=== PATIENT | male | born 1990 | race Caucasian/White ===

== ENCOUNTER 2023-06-05 08:01 | Emergency (ER) | payer OTHER, SELFPAY ==
--- NOTE | 2023-06-05 08:14 | ED.URI ---
HPI - URI/Sore Throat General Chief Complaint: Upper Respiratory Infection Stated Complaint: sore throat,fever Source: patient and RN notes reviewed History of Present Illness HPI Narrative: 32 yo M presents to urgent care with complaints of a sore throat since Tuesday. Pt states he has some bilateral ear pain as well and a little congestion and runny nose. Denies any fevers, chills, N/V/D, chest pain, or SOB. Pt has been taking Stephanie-seltzer at home. Related Data Home Medications Medication Instructions Recorded Confirmed No Home Medications 06/05/23 06/05/23 Allergies Allergy/AdvReac Type Severity Reaction Status Date / Time No Known Allergies Allergy Mild Verified 06/05/23 08:12 Review of Systems Review of Systems: CONSTITUTIONAL: Denies fever, chills, or sweats. EYES: Denies visual changes, redness, or discharge. ENT: sore throat, ear pain, and some congestion CARDIOVASCULAR: Denies chest pain, palpitations, or edema. RESPIRATORY: Denies cough or dyspnea. GASTROINTESTINAL: Denies abdominal pain, nausea, vomiting, or diarrhea. GENITOURINARY: Denies dysuria or hematuria. SKIN: Denies rash or itching. MUSCULOSKELETAL: Denies back pain, joint pain, or myalgia. NEUROLOGIC: Denies headache, numbness, or weakness. Pertinent positives per HPI. [facility] Family History Family History (Updated 07/04/14 @ 07:13 by DOCTOR UNKNOWN) Other Diabetes mellitus Family history of heart disease in male family member before age 55 Hypertension Social History Social History Smoking status: Never smoker Alcohol intake: current Comments At the time of my signature, I reviewed and agree with the nursing past medical, surgical, social, and family history. There is no relevant family history pertinent to the patient complaint. Exam Narrative: GENERAL: This is a well-nourished, well-developed patient, in no apparent distress. HEAD: normocephalic, atraumatic. EYES: Sclera clear/white. Vision is grossly intact. EARS: External ears normal, auditory canals clear and without drainage, TMs normal without perforation. Hearing grossly intact. NOSE: External nose normal with no obvious nasal discharge, nares without redness, no rhinorrhea. THROAT: Mucous membranes moist, posterior pharynx mildly erythemic. Postnasal drip noted. NECK: Neck supple, non-tender without lymphadenopathy, masses or thyromegaly. CARDIOVASCULAR: Regular rate RESPIRATORY: no respiratory distress SKIN: warm, intact with no suspicious lesions or rash, good texture and turgor. NEURO: awake, alert, and oriented to person, place and time. There were no obvious focal neurologic abnormalities. Course Course Level of Care: Express Care Visit Vital Signs Vital signs: Vital Signs Temperature 97.6 F 06/05/23 08:18 Pulse Rate 84 06/05/23 08:18 Respiratory Rate 16 06/05/23 08:18 Blood Pressure 153/91 H 06/05/23 08:18 Pulse Oximetry 100 06/05/23 08:18 Temperature 97.6 F 06/05/23 08:18 Pulse Rate 84 06/05/23 08:18 Respiratory Rate 16 06/05/23 08:18 Blood Pressure 153/91 H 06/05/23 08:18 Pulse Oximetry 100 06/05/23 08:18 Reviewed MDM - URI/Sore Throat MDM Narrative Medical decision making narrative: Rapid strep is negative in the office; however we will send to the lab for confirmation; there is a small percentage chance that it can come back positive; if it is, we will call you in 2-3days; and your prescription will be call in to your pharmacy. However, there is NO indication for antibiotic at this time. -Increase your fluids and Vitamin C. -Oral rinses such as: Salt water gargles and/or may use topical anesthetic (eg. Chloraseptic spray) or lozenges to relieve dryness or throat pain. -Take tylenol and ibuprofen as needed for pain and fever as directed. -Frequent hand washing or hand head tennis professional is one of the best ways to prevent spread of infection. -Follow up with primary care provider in 2-3 da
[2023-06-05 08:18] VITALS: BP 153/91; PULSE 84; RESP 16; TEMP 36.4; O2SAT 100
== END 2023-06-05 08:55 | disposition home or self-care (01) ==
PROVIDERS: Emergency Provider Nurse Practitioner Family
DX: J02.9 Acute pharyngitis, unspecified (principal); E78.00 Pure hypercholesterolemia, unspecified; I10 Essential (primary) hypertension
CPT/HCPCS: 87081; 87880; 99213; G0463

== ENCOUNTER 2025-04-07 12:19 | Emergency (ER) | payer OTHER, SELFPAY ==
--- NOTE | ~2025-04-07 | CT_ITS ---
EXAMINATION: CT lumbar spine wo con DATE: 04/07/2025 14:46 INDICATION: Low back pain TECHNIQUE: Computed tomography (CT) of the lumbar spine was performed without intravenous contrast. A utomated exposure control and iterative reconstruction technique were employed. The dose-length produ ct was 1023.52 mGy-cm. COMPARISON: None FINDINGS: 8 degrees lumbar levocurvature. Sagittal alignment is normal. Vertebral body heights are normal.. No fracture. Mild disc height loss at L3-L4, L4-L5 and L5-S1. Moderate bilateral sacroiliac osteoarthrit is. Paravertebral soft tissues are unremarkable. The following disc levels are specifically discussed : T12-L1: There is moderate bilateral facet osteoarthritis. There is no neural foraminal stenosis. Ther e is no central canal stenosis. L1-L2: There is moderate bilateral facet joint osteoarthritis. There is no neural foraminal stenosis . There is no central canal stenosis. L2-L3: Disc is mildly bulging. There is mild to moderate bilateral facet joint osteoarthritis. There is mild bilateral neural foraminal stenosis. There is minimal central canal stenosis. L3-L4: Disc is bulging. There is mild bilateral facet joint osteoarthritis. There is moderate right a nd mild to moderate left neural foraminal stenosis. There is mild central canal stenosis. L4-L5: Disc is bulging. There is mild bilateral facet joint osteoarthritis. There is moderate bilater al neural foraminal stenosis. There is mild central canal stenosis. L5-S1: Disc is bulging. There is mild right and mild to moderate left facet joint osteoarthritis. The re is mild right and moderate left neural foraminal stenosis. There is no central canal stenosis. IMPRESSION: 1. Mild lumbar spondylosis. Reviewed, dictated and finalized at location A. IMPRESSION: 1. Mild lumbar spondylosis.
[2025-04-07 12:49] VITALS: BP 148/95; PULSE 64; RESP 16; TEMP 36.3; O2SAT 100
--- NOTE | 2025-04-07 14:34 | ED_ITS ---
HPI - General Adult General Chief complaint: Back Pain/Injury Stated complaint: Back pain since Tuesday-hx scoliosis Time Seen by Provider: 04/07/25 14:19 History of Present Illness HPI narrative: Patient 32-year-old gentleman presents emergency department with chief complaint of back pain. Patient has history of scoliosis and reports that he has intermittent flare ups patient does report that he has had a spine doctor and [facility] but currently is not able to see them due to insurance related issues. The patient reports no bowel or bladder incontinence reports no footdrop denies saddle anesthesia Related Data Allergies Allergy/AdvReac Type Severity Reaction Status Date / Time No Known Allergies Allergy Mild Verified 04/07/25 12:21 Review of Systems Review of Systems: A 10 system review of systems was completed on the patient and is negative except for what is stated in the HPI. Nursing and ancillary documentation was reviewed. PMFSH Past Medical History Medical History Hyperlipidemia Family History Family History Mother Cancer Grandparent Cancer Diabetes mellitus Hypertension Other Family history of heart disease in male family member before age 55 Social History Social History Smoking status: Never smoker Alcohol intake: current Do You Feel Safe in your Home?: Yes Lack of Transportation: No Lack of Food: Never True Current Housing: I Have Housing Living arrangements: with family Gender identity (if verbalized by the patient): Male Sexual Orientation (if Verbalized by the Patient): Straight or Heterosexual Exam Narrative: GENERAL: Well-appearing, well-nourished, and in no acute distress. HEAD: Normocephalic, atraumatic. EYES: PERRLA and EOMI. ENT: Nares clear, no rhinorrhea or epistaxis. Mucous membranes moist. NECK: Supple. CHEST: Clear to auscultation. No respiratory distress. HEART: Regular rate and rhythm. No murmur heard. Normal peripheral pulses. ABDOMEN: Soft, nontender, nondistended, normal active bowel sounds. EXTREMITIES: Normal range of motion. No edema. SKIN: Warm, dry, no rash. NEURO: No focal deficits. Alert and oriented x3. No saddle anesthesia no footdrop able ambulate on tiptoes PSYCH: Normal mood and affect. Course Vital Signs Vital signs: Vital Signs Temperature 36.3 C L 04/07/25 12:49 Pulse Rate 64 04/07/25 12:49 Respiratory Rate 16 04/07/25 12:49 Blood Pressure 148/95 H 04/07/25 12:49 Pulse Oximetry 100 04/07/25 12:49 Oxygen Delivery Room Air 04/07/25 12:49 Temperature 36.3 C L 04/07/25 12:49 Pulse Rate 53 L 04/07/25 15:24 Respiratory Rate 15 04/07/25 15:24 Blood Pressure 131/82 04/07/25 15:24 Pulse Oximetry 99 04/07/25 15:24 Oxygen Delivery Room Air 04/07/25 12:49 Medical Decision Making MDM Narrative Medical decision making narrative: Differential diagnosis includes lumbar radiculopathy, disc herniation, cauda equina, acute nerve compression The patient showed no signs of saddle anesthesia no footdrop was able ambulate on his tiptoes shows no signs of acute cauda equina syndrome. The patient was instructed to follow-up with neurosurgery patient given steroids muscle relaxers Lidoderm. Patient was instructed return precautions 8 degrees lumbar levocurvature. Sagittal alignment is normal. Vertebral body heights are normal.. No fracture. Mild disc height loss at L3-L4, L4-L5 and L5- S1. Moderate bilateral sacroiliac osteoarthritis. Paravertebral soft tissues are unremarkable. The following disc levels are specifically discussed: T12-L1: There is moderate bilateral facet osteoarthritis. There is no neural foraminal stenosis. There is no central canal stenosis. L1-L2: There is moderate bilateral facet joint osteoarthritis. There is no neural foraminal stenosis. There is no central canal stenosis. L2-L3: Disc is mildly bulging. There is mild to moderate bilateral facet joint osteoarthritis. There is mild bilateral neural foraminal stenosis. There is minimal central canal stenosis. L3-L4: Disc is bulging. There is mild bilateral facet joint osteoarthritis. There is moderate right and mild to moderate left neural foraminal stenosis. There is mild central canal stenosis. L4-L5: Disc is bulging. There is mild bilateral facet joint osteoarthritis. There is moderate bilateral neural foraminal stenosis. There is mild central canal stenosis. L5-S1: Disc is bulging. There is mild right and mild to moderate left facet joint osteoarthritis. There is mild right and moderate left neural foraminal stenosis. There is no central canal stenosis. IMPRESSION: 1. Mild lumbar spondylosis. Vital Signs Vital Signs: Vital Signs Temperature 36.3 C L 04/07/25 12:49 Pulse Rate 64 04/07/25 12:49 Respiratory Rate 16 04/07/25 12:49 Blood Pressure 148/95 H 04/07/25 12:49 Pulse Oximetry 100 04/07/25 12:49 Oxygen Delivery Room Air 04/07/25 12:49 Temperature 36.3 C L 04/07/25 12:49 Pulse Rate 53 L 04/07/25 15:24 Respiratory Rate 15 04/07/25 15:24 Blood Pressure 131/82 04/07/25 15:24 Pulse Oximetry 99 04/07/25 15:24 Oxygen Delivery Room Air 04/07/25 12:49 Lab Data Labs: Lab Results 04/07/25 Range/Units 14:55 Urine Color Yellow (Yellow) Urine Appearance Cloudy H (Clear) Urine pH 7.5 (5.0-9.0) Ur Specific [place] 1.025 (1.001-1.035) Urine Protein Trace (Negative) mg/dL Urine Glucose (UA) Negative (Negative) mg/dL Urine Ketones Trace H (Negative) mg/dL Ur Blood (Man) Negative (Negative) Urine Nitrate Negative (Negative) Urine Bilirubin Negative (Negative) Urine Urobilinogen 1.0 (<2.0) mg/dL Leukocyte Esterase Rfl Negative (Negative) JOEY/UL Urine RBC 0-2 (0-2) /hpf Urine WBC 0-5 (0-3) /hpf Ur Squamous Epith Cells None seen (Few) /hpf Urine Bacteria None seen /hpf Urine Casts 0-2 Discharge Plan Discharge Clinical Impression: Lumbar radiculopathy, Low back pain Patient Disposition: Home Condition: Stable Instructions: Antibiotic Form, Acute Low Back Pain (ED), Lumbar Radiculopathy (ED) Patient Language: Haitian Prescriptions: New diclofenac potassium 50 mg tablet 50 mg PO TID PRN (Reason: pain) Qty: 30 0RF orphenadrine citrate 100 mg tablet extended release 100 mg PO Q12H PRN (Reason: muscle pain) Qty: 30 0RF lidocaine [Lidoderm] 5 % adhesive patch,medicated 1 patch topical DAILY Qty: 15 0RF Rx Instructions: leave on most painful area for up to 12 hrs prednisone 20 mg tablet 40 mg PO DAILY 5 Days Qty: 10 0RF No Action atomoxetine 40 mg capsule 40 mg PO QAM Qty: 90 2RF baclofen 10 mg tablet 10 mg PO QHS Qty: 90 0RF Follow-up/Referrals: Joy Lagunas MD [Primary Care Provider] - Wade Smith MD [Physician] - Time of Disposition: 15:48
[2025-04-07] MEDS: LIDOCAINE 5% PATCH 1 PATCH TRANSDERM (14:48)
[2025-04-07] MEDS: HYDROcodone/acetaminophen (*CRX) 5-325 MG TABLET 1 TAB PO (14:49)
[2025-04-07] MEDS: ORPHENADRINE CITRATE 100 MG TABLET.ER PO (14:49)
[2025-04-07] MEDS: KETOROLAC 30 MG/ML VIAL (*BKC) IM (14:51)
[2025-04-07] MEDS: dexAMETHasone SOD PHOS INJ 10 MG/ML 1 ML VIAL IM (14:51)
[2025-04-07 15:11] LABS: Add Urine Microscopic? YES; Appearance Urine Cloudy (Clear); Bacteria Urine None Seen /hpf; Bilirubin Urine Negative (Negative); Blood Urine Negative (Negative); Color Urine Yellow (Yellow); Glucose Urine UA Negative (Negative); Ketones Urine Trace mg/dL (Negative); Leukocyte Esterase Ur Negative LEU/UL (Negative); Nitrate Urine Negative (Negative); Non Pathogenic Casts 0-2; Protein Urine Trace mg/dL (Negative); RBC Urine 0-2 /hpf (0-2); Specific Grav Ur 1.025 (1.001-1.035); Squamous Epithelial Cell Urine None Seen /hpf (Few); WBC Urine 0-5 /hpf (0-3); pH Urine 7.5 (5.0-9.0)
[2025-04-07 15:24] VITALS: BP 131/82; PULSE 53; RESP 15; O2SAT 99
--- OUTSIDE RECORDS SUMMARY | 2025-04-07 18:04 | XMS_ITS | Clinical Summary ---
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 This disclosure is being madepursuant to the Care Everywhere program and may not contain all information available regarding this patient. Last updated 18.[facility] Allergies No known active allergies Immunizations Immunization Administration Dates Next Due TDAP (7yrs+) 12/10/2019 Social History Tobacco Use Types Packs/Day Years Used Date Smoking Tobacco: Never Smokeless Tobacco: Never Alcohol Use Standard Drinks/Week Comments Yes 0 (1 standard drink = 0.6 oz pur e alcohol) occassionally Sex and Gender Information Value Date Recorded Sex Assigned at Not on file Legal Sex Male 5:35 AM [employer] Gender Identity Not on file Sexual Orientation Not on file Last Filed Vital Signs Vital Sign Reading Time Taken Comments Blood Pressure 140/85 12/10/2019 1:40 PM [employer] Pulse 66 12/10/2019 11:58 AM [employer] Temperature 36.6 C (97.8 F) 12/10/2019 11:58 AM [employer] Respiratory Rate 18 12/10/2019 11:58 AM [employer] Oxygen Saturation 99% 12/10/2019 1:39 PM [employer] Inhaled Oxygen Concentration - - Weight 117.9 kg (260 lb) 12/10/2019 11:58 AM [employer] Height 203.2 cm (6' 8) 12/10/2019 11:58 AM [employer] Body Mass Index 28.56 12/10/2019 11:58 AM [employer] Plan of Treatment Health Maintenance Due Date Last Done Comments HIV SCREENING 2007 HEPATITIS C SCREENING 10/06/2010 HEPATITIS B VACCINE (1 of 3 - 19+ 3-dose series) 2011 COVID-19 VACCINE (1 - 2023-2 5 season) 2024 DEPRESSION SCREENING 11/07/2024 INFLUENZA VACCINE (Season Ended) 2025 DTAP/TDAP/TD VACCINES (2 - T d or Tdap) 12/10/2029 12/10/2019 ZOSTER VACCINE (1 of 2) 2042 HIB VACCINE Aged Out No longer eligi ble based on patient's age to complete this topic HPV VACCINE Aged Out No longer eligi ble based on patient's age to complete this topic MENINGOCOCCAL (Group B) VACC INE SHARED DECISION-MAKING Aged Out No longer eligibl e based on patient's age to complete this topic MENINGOCOCCAL GROUPS A/C/Y/W VACCINE Aged Out No longer eligible b ased on patient's age to complete this topic PNEUMOCOCCAL VACCINE Aged Out No long er eligible based on patient's age to complete this topic Insurance HEALTH Care Teams Roller Mill Operator Relationship Specialty Start Date End Date Ubaldo Somers MD [address] [place] [id number] PCP - General 12/28/09
--- OUTSIDE RECORDS SUMMARY | 2025-04-07 18:04 | XMS_ITS | Continuity of Care Document ---
Author Organization [facility] Address [address] [place] [address] Phone Care Team Providers Care Provider Enrollment Specialist Name Role Phone Katrina Osorio Unavailable Unavailabl e Allergies, Adverse Reactions, Alerts Substance Reaction Status Criticality No Known Allergies Active No Inform ation Medications Medication Instructions Dosage Effective Dates (start - stop) Status Comments amoxicillin 875 mg-potassium clavulanate 125 mg tablet take 1 tablet by oral route every 12 hours 1.00 tablet - Active polymyxin B sulfate 10,000 unit-trimethoprim 1 mg/mL eye drops instill 2 drop by ophthalmic route every 6 hours into affected eye(s) 2 drop - Active losartan 25 mg tablet take 1 tablet by oral route every day 25 MG - Active amoxicillin 500 mg tablet take 1 tablet by oral route 3 times every day 500 MG - No Longer Active amoxicillin 875 mg-potassium clavulanate 125 mg tablet take 1 tablet by oral route every 12 hours 1.00 tablet - No Longer Active Procedures Procedure Date Pt inelig neg scrn depres PREVENTATIVE-EST: 18-39 BODY MASS INDEX DOCD SYST BP LT 130 MM HG DIAST BP >= 90 MM HG URINALYSIS, REFLEX (UA) COMPREHEN METABOLIC PANEL CMP LDL-CHOLESTEROL, DIRECT ROUTINE VENIPUNCTURE PREVENTATIVE-EST: 18-39 Mar-09-2022 COMPREHEN METABOLIC PANEL CMP 0 LIPID PANEL URINALYSIS, REFLEX (UA) ROUTINE VENIPUNCTURE PREVENTATIVE-NEW: Advance Directives Directive Yes / No Effective Date File Name No Information Encounters Encounter Description Practice Location Reason(s) For Visit Diagnoses Date Provider Providers Copied on Encounter [facility], [address], [place], [place], [id number] , tel: [phone] [facility] No Information 4 Jeffadelaide Katrina. [address], [id number], . tel: [phone] [facility], [address], [place], [place], [address] , tel: [phone] [facility] No Information 3 Sheila Harding. [address] [address] Reid, [address], [id number], . tel: [phone] [facility], [address], [place], [place], [address] , tel: [phone] [facility] No Information 3 Omero Herndon. [address], [id number], . tel: [phone] [facility], [address], [place], [place], [address] , tel: [phone] [facility] No Information 3 Sheila Bridges [address] Randa Reid, [facility] [address] [place], [id number], . tel: [phone] PREVENTATIVE -EST: [facility], [address], [place], [place], [address] , tel: [phone] [facility] preventive exam (chief complaint) Hyperlipidemia, unspecified hyperlipidemia typeEssential (primary) hypertensionScol iosis of thoracic spine, unspecified scoliosis typeRoutine check-up 3 Sheila Bridges [address], [address], [place], [place], [address], . tel:[phone] Referring Provider: Mehdi Milian, [address], [place], [address]. tel:[phone] PREVENTATIVE -EST: [address] [facility], [address], [place], [place], [address] , tel: [phone] [facility] back pain (chief complaint)p hysical (chief complaint)C hronic Conditions (chief complaint) Essential (primary) hypertensionEnco unter for general adult medical examination without abnormal findingsScoliosi s of thoracic spine, unspecified scoliosis typeLumbar back pain Jan- 2 Omero Herndon. [address] Randa Blackwood, Jassi [address] [place] [address], [id number], . tel:[phone] Referring Provider: Mehdi Milian, [address] [facility], [place], [address]. tel:[phone] [facility], [address], [place], [place], [address] , tel: [phone] [facility] Routine check-upHyperlip idemia, unspecified hyperlipidemia typeHTN (hypertension), benign 0 Sheila Harding. [address], [address], [place], [place], [address], . tel:[phone] Referring Provider: Mehdi Milian, [address], [place], [address]. tel:[phone] PREVENTATIVE -NEW: [address] [facility], [address], [place], [place], [address] , tel: [phone] [facility] patient (chief complaint) Routine check-upHTN (hypertension), benignHyperlipid emia, unspecified hyperlipidemia typeHistory of 2019 novel coronavirus disease (COVID-19)Family history of pancreatic cancer 0 Sheila Harding. [address], [address], [place], [place], [address], . tel:[phone] Referring Provider: Mehdi Milian, [address], [place], [address]. tel:[phone] Family History Family Member Type Diagnosis Age At Onset No Information Immunizations Vaccine Date Status Comments Pfizer (Abelardo-Sucrose) COVID1 9 Vaccine, 0.3mL per dose, 2 doses, administered 21 days apart administered Source: Other Registry Pfizer (Abelardo-Sucrose) COVID1 9 Vaccine, 0.3mL per dose, 2 doses, administered 21 days apart administered Source: Other Registry Payers Payer name Insurance type Covered democrat ID Authoriza tiangelina(s) [facility] [id number] Social History Type Description Quantity Date Captured Comments Alcohol Use Details Unknown Caffeine Use Details Unknown Tobacco Use Status No Information Smoking Status No Information Sex Male Chief Complaint And Reason For Visit No Information Reason For Referral Reason For Referral No Information History Of Present Illness Encounter Date Complaint History Of Prese nt Illness preventive exam physical Patient here for his physical.Diet-balance diet; fruits and vegetablesexercise-has been more sedentary lately because 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 Calvillo previously (orthopedic spine doctor) when he was a childwore a brace for about a yearhas had no real trouble since back pain Chronic Conditions *See Chronic Conditions HPI new patient new patient (comments) new patie nt, insurance changed, was going to come in but tested positive for covid tuesdayhe had covid about 3 weeks ago, had cold sx/fatigue and dec smell, now doing better/back to baselineprior md had done cholesteorl test which was high, told to eat healthy and exercise, but concerned as he was already doing thishas been having high bp readings for some time, has been checking regularlysbp 130-140, dbp high 80s to 90s, she gave me aobut 10 readings with manual cuffhas never been treatedmom pancreatic ca, ? 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 [employer] nonesh: no tob, 2-3 beers 4-5 nights week, , runs a [employer]; mom panc ca in early 50sdad svt, htn, inc lipidsimmun; no flu vaccine, td this year due to injuryrosweihg stableheent negpulm sob with covid, resolvedcv neggi neggu negms back issues chronically wiht scoliosis, would like to f/u with someonecherisein negneuodannie laboywife denies any janay sxmood ok Functional Status Date Functional Assessmen t No Information Instructions Date Instruction Additional Infor dioni currently asymptomatic/monitor R elated to Scoliosis of thoracic spine, unspecified scoliosis type as abovereq for lipi d panel (not fasting today) Related to Hyperlipidemia, unspecified hyperlipidemia type rec. treatment, losa rtan 25 mg a day, to monitor bp and send in readings in1-2 weekslet me know if you feel you are having any adverse effectsrec. ongoing efforts with healthy diet/being moderate with salt intake and alcohol intake/regular exercise...req for cmpua Related to Essential (primary) hypertension rec. try to increase exercisecont healthy dietrec. consider covid booster and hpv vaccinerec. annual flu vaccinefu yearly/sooner prn Related to Routine check-up continue to monitor regularlyrepeat bp better, but not at goal Related to Essential (primary) hypertension reviewed imagingreco mmend follow up with as needed Related to Scoliosis of thoracic spine, unspecified scoliosis type see above Related to Lumba r back pain encourage diet and e xerciserecommend regular follow up with dentist and eye doctorutd with vaccinescmp ldlto follow up in 1 year or sooner should a problem arise Related to Encounter for general adult medical examination without abnormal findings clinically resolvedw chloé has questions about retirement implicationsnotify me if you develop any new sx Related to History of 2019 novel coronavirus disease (COVID-19) rec avoid etoh Related to Famil y history of pancreatic cancer as above Related to Hyper lipidemia, unspecified hyperlipidemia type suspect he will need treatmentlabs and bp check as above, if elevated here, will start meds, have his monitor and call in several weeks with bp readings and arrange for f/urec. low salt dietrec. dash dietrec. moderate alcohol inake Related to HTN (hypertension), benign rec. cont/resume reg ular exercise and cont efforts wiht healthy dietrec. flu vaccinerec. yearly check uparrange for him to come in fasting for labs and bp check (cmp/lipids/ua) Related to Routine check-up Assessments Type Assessment Date No Information Patient Care Teams Name Effective Dates (start - stop) Status Members No Information
--- OUTSIDE RECORDS SUMMARY | 2025-04-07 18:09 | XMS_ITS | Continuity of Care Document ---
Author Organization [facility] Address [address] [place] [address] Phone Care Team Providers Care Parachute Rigger Name Role Phone Katrina Osorio Unavailable Unavailabl [...] Diagnoses Date Provider Providers Copied on Encounter [facility], [address], [place], [place], [id number] , tel: [phone] [place] No Information 4 Jeffadelaide Katrina. [address], [id number], . tel: [phone] [facility], [address], [place], [place], [id number] , tel: [phone] [place] No Information 3 Sheila Harding. [address] R[address] Reid, [address], [id number], . tel: [phone] [facility], [address], [place], [place], [address] , tel: [phone] [place] No Information 3 Omero Herndon. [address], [id number], . tel: [phone] [facility], [address], [place], [place], [address] , tel: [phone] [place] No Information 3 Sheila Bridges [address] Randa Reid, [facility] [address], [place], [address], . tel: [phone] PREVENTATIVE -EST: [facility], [address], [place], [place], [address] , tel: [phone] [place] preventive exam (chief complaint) Hyperlipidemia, unspecified hyperlipidemia typeEssential (primary) hypertensionScol iosis of thoracic spine, unspecified scoliosis typeRoutine check-up 3 Sheila Bridges [address], [address], [place], [place], [id number], . tel:[phone] Referring Provider: Mehdi Milian, [address], [place], [address]. tel:[phone] PREVENTATIVE -EST: 39 [facility], [address], [place], [place], [id number] , tel: [phone] [place] back pain (chief complaint)p hysical (chief complaint)C hronic Conditions (chief complaint) Essential (primary) hypertensionEnco unter for general adult medical examination without abnormal findingsScoliosi s of thoracic spine, unspecified scoliosis typeLumbar back pain Jan- 2 Omero Herndon. [address] Randa Blackwood, Jassi [address] [place] [address], [id number], . tel:[phone] Referring Provider: Mehdi Milian, [address] [facility] [place], [place], [address]. tel:[phone] [facility], [address], [place], [place], [id number] , tel: [phone] [place] Routine check-upHyperlip idemia, unspecified hyperlipidemia typeHTN (hypertension), benign 0 Sheila Harding. [address], [address], [place], [place], [address], . tel:[phone] Referring Provider: Mehdi Milian, [address], [place], [address]. tel:[phone] PREVENTATIVE -NEW: [address] [facility], [address], [place], [place], [id number] , tel: [phone] [facility] patient (chief complaint) Routine check-upHTN (hypertension), benignHyperlipid emia, unspecified hyperlipidemia typeHistory of 2019 novel coronavirus disease (COVID-19)Family history of pancreatic cancer 0 Sheila [address]. [address], [address], [place], [place], [address], . tel:[phone] Referring Provider: Mehdi Milian, [address], [place], [address]. 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 [employer]; mom panc ca in early 50sdad svt, htn, inc lipidsimmun; no flu vaccine, td this year due to injuryrosweihg stableheent negpulm sob with covid, resolvedcv neggi neggu negms back issues chronically wiht scoliosis, would like to f/u with someonecherisein negneuodannie laboywife denies any janay sxmood ok Functional Status Date Functional Assessmen t No Information Instructions Date Instruction Additional Infor dioni as abovereq for lipi d panel (not fasting today) Related to Hyperlipidemia, unspecified hyperlipidemia type currently asymptomatic/monitor R elated to Scoliosis of thoracic spine, unspecified scoliosis type rec. treatment, losa rtan 25 mg [...] findings clinically resolvedw chloé has questions about custodial implicationsnotify me if you develop any new [...]
== END 2025-04-07 16:10 | disposition home or self-care (01) ==
PROVIDERS: Emergency Medicine; Emergency Provider Emergency Medicine; PCP Family Medicine
DX: M54.16 Radiculopathy, lumbar region (principal); M54.50 Low back pain, unspecified; E78.5 Hyperlipidemia, unspecified
CPT/HCPCS: 72131; 81001; 96372; 99284; A9270; J1100; J1885

== ENCOUNTER 2025-05-13 15:41 | Outpatient (CLI) | payer OTHER, SELFPAY ==
--- NOTE | ~2025-05-13 | MR_ITS ---
MRI of the lumbar spine Clinical History: Spinal stenosis Technique: Axial T2-weighted images, and sagittal T1-weighted, T2-weighted, and T2 fat-sat images wer e acquired. Findings: There is no fracture of the lumbar spine. There is 3 mm retrolisthesis of L5 over S1. No francisco ne marrow signal reality seen. At L1-L2 and L2-L3, there is no disc bulge or herniation. No spinal canal stenosis or neural foramina l narrowing at these levels. At L3-L4, there is mild diffuse disc bulge with mild facet hypertrophy. No micah spinal canal stenosi s. There is moderate to advanced bilateral neural foraminal narrowing. At L4-L5, there is diffuse disc bulge with mild facet arthropathy. No micah central canal stenosis. T here is severe bilateral neural foraminal narrowing. At L5-S1, there is central disc extrusion with mild facet arthropathy. No micah central canal stenosi s. There is severe left neural foraminal narrowing, and moderate right neural foraminal narrowing. Paravertebral soft tissues are unremarkable. Impression: Moderate to advanced degenerative spondylosis at L3-L4, L4-L5, L5-S1, as detailed above. Reviewed, dictated and finalized at location M. Impression: Moderate to advanced degenerative spondylosis at L3-L4, L4-L5, L5-S1, as detail ed above.
--- OUTSIDE RECORDS SUMMARY | 2025-05-13 15:45 | XMS_ITS | Clinical Summary ---
Author Organization [facility] Address [address] [place] [place] [address] Care Team Providers Care Curtain Mender Name Role Phone Ubaldo Somers MD Primary Care Provider [phone] Source Comments [facility],non-owned Affiliates and Associated Physician Practices is amultiple site organization consisting of ambulatory clinics and hospital sitesin [place], [place], [place] and [place]. This disclosure is being madepursuant to the Care Everywhere program and may not contain all information available regarding this patient. Last updated 18.[facility] Allergies No known active allergies Immunizations Immunization [...] on file Legal Sex Male 5:35 AM [employer] Gender Identity Not on file Sexual Orientation Not on file Last Filed Vital Signs Vital Sign Reading Time Taken Comments Blood Pressure 140/85 12/10/2019 1:40 PM [employer] Pulse 66 12/10/2019 11:58 AM [employer] Temperature 36.6 C (97.8 F) 12/10/2019 11:58 AM [employer] Respiratory Rate 18 12/10/2019 11:58 AM [employer] Oxygen Saturation 99% 12/10/2019 1:39 PM [employer] Inhaled Oxygen Concentration - - Weight 117.9 kg (260 lb) 12/10/2019 11:58 AM [employer] Height 203.2 cm (6' 8) 12/10/2019 11:58 AM [employer] Body Mass Index 28.56 12/10/2019 11:58 AM [employer] Plan of Treatment Health Maintenance Due Date [...] complete this topic Insurance HEALTH Care Teams Curtain Mender Relationship Specialty Start Date End Date Ubaldo Somers MD [address] [place] [id number] PCP - General 12/28/09
== END 2025-05-13 15:42 | disposition home or self-care (01) ==
PROVIDERS: PCP Family Medicine; Visit Provider Family Medicine
DX: M48.00 Spinal stenosis, site unspecified (principal); M47.896 Other spondylosis, lumbar region
CPT/HCPCS: 72148